=== PATIENT | male | born 1975 | race Hispanic/Latino ===

== ENCOUNTER 2018-06-05 10:33 | Emergency (ER) | payer SELFPAY ==
[~2018-06-05] VITALS: Ht 175.3 cm; Wt 117.9 kg
[2018-06-05] MEDS ORDERED: hemp oil (10:43)
[2018-06-05] MEDS ORDERED: MECLIZINE HCL 12.5 MG TAB PO ONE (11:30)
[2018-06-05] MEDS ORDERED: SODIUM CHLORIDE 0.9% 1000ML 1,000 ML IV SCH (11:30)
--- NOTE | 2018-06-05 12:17 | Diagnostic Imaging Report ---
Exam: Head CT without contrast History: 42-year-old male with dizziness Comparison studies: None Technique: Axial images were obtained from the skull base to the vertex. Coronal and sagittal reconstructions obtained from the axial data. Dose modulation, iterative reconstruction, and/or weight based adjustment of the mA/kV was utilized to reduce the radiation dose to as low as reasonably achievable. Findings: Scalp/skull: No abnormalities. No fractures, blastic or lytic lesions. An incidental 6 mm bone island is seen in the greater wing of the left sphenoid Extra-axial spaces: No masses. No fluid collections. Brain sulci: Appropriate for age. Ventricles: Normal in size and configuration. No hydrocephalus. Parenchyma: A 7 mm hyperdense focus with a spidery configuration in the right deep parietal centrum semiovale white matter without surrounding edema or mass effect is probably an incidental calcified cavernoma formation or developmental venous anomaly. No masses, hemorrhage, acute or chronic cortical vascular insults. Sellar/suprasellar region: No abnormalities Craniocervical junction: Patent foramen magnum. No Chiari one malformation. IMPRESSION: 1. No acute abnormalities. 2. Specifically, no mass, hemorrhage or acute territorial vascular insult. 3. 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 Preliminary report dictated by Dr. Laura Odell, Neuroradiology Fellow. A final report by the attending radiologist will follow. Signed by: Dr. Trevin Quiñonez M.D. on 06/05/2018 1:42 PM
== END 2018-06-05 13:15 | disposition home or self-care (01) ==
LOC: FSED 10:33
DX: R42 Dizziness and giddiness (principal); R11.0 Nausea; R03.0 Elevated blood-pressure reading, without diagnosis of hypertension
CPT/HCPCS: 70450; 80053; 80307; 81003; 82553; 84484; 85025; 93005; 99284